=== PATIENT | female | born 1960 | race African-American/Black ===

== ENCOUNTER 2017-10-31 04:23 | Inpatient (IN) | payer BC ==
[2017-10-31] MEDS ORDERED: ONDANSETRON 4 MG INJ IV (05:30)
[2017-10-31] MEDS: morphine 2 MG INJ IV ×3 (05:49→14:06)
[2017-10-31] MEDS: DEXTROSE 5%-0.45% NACL 1,000 ML IV (05:50)
[2017-10-31] MEDS ORDERED: DEXTROSE 50% 50 ML SYRINGE IV ×2 (06:00)
[2017-10-31] MEDS ORDERED: GLUCOSE GEL 15 GRAM TUBE PO ×2 (06:00)
[2017-10-31] MEDS ORDERED: GLUCOSE GEL 15 GRAM TUBE BUCCAL (06:00)
[2017-10-31] MEDS ORDERED: GLUCAGON 1 MG INJ IM (06:00)
[2017-10-31 07:15] LABS: ADD MAN DIFF? NO
[2017-10-31 07:44] LABS: ALANINE AMINOTRANSFERASE 41 IU/L (13-69); ALBUMIN 3.5 g/dl (3.3-4.9); ALBUMIN/GLOBULIN RATIO 1.25; ALKALINE PHOSPHATASE 52 IU/L (42-121); ANION GAP 8 (8-16); ASPARTATE AMINO TRANSFERASE 43 IU/L (15-46); BILIRUBIN,INDIRECT 1.4 mg/dl (0-1.1); BILIRUBIN,TOTAL 1.4 mg/dl (0.2-1.3); BLOOD UREA NITROGEN 13 mg/dl (7-20); CARBON DIOXIDE 36 mmol/L (21-31); CHLORIDE 94 mmol/L (97-110); CREATININE 0.83 mg/dl (0.44-1.00); GLUCOSE 146 mg/dl (70-220); MAGNESIUM 2.1 mg/dl (1.7-2.5); PHOSPHORUS 2.5 mg/dl (2.5-4.9); POTASSIUM 3.1 mmol/L (3.5-5.1); SODIUM 135 mmol/L (135-144); TOTAL PROTEIN 6.3 g/dl (6.1-8.1)
[2017-10-31 07:48] LABS: BASOPHILS % 0.3 % (0.0-2.0); EOSINOPHILS # 0.1 10^3/ul (0.0-0.5); EOSINOPHILS % 0.8 % (0.0-7.0); HEMATOCRIT 35.6 % (37.0-47.0); HEMOGLOBIN 12.5 g/dl (12.0-16.0); LYMPHOCYTES # 2.7 10^3/ul (0.8-2.9); LYMPHOCYTES % 26.3 % (15.0-51.0); MEAN CORPUSCULAR HEMOGLOBIN 31.4 pg (29.0-33.0); MEAN CORPUSCULAR HGB CONC 35.1 g/dl (32.0-37.0); MEAN CORPUSCULAR VOLUME 89.4 fl (82.0-101.0); MEAN PLATELET VOLUME 10.3 fl (7.4-10.4); MONOCYTE # 0.4 10^3/ul (0.3-0.9); MONOCYTES % 3.9 % (0.0-11.0); NEUTROPHIL # 7.1 10^3/ul (1.6-7.5); NEUTROPHILS % 68.3 % (39.0-77.0); PLATELET COUNT 284 10^3/UL (140-415); RED BLOOD COUNT 3.98 10^6/ul (4.20-5.40); RED CELL DISTRIBUTION WIDTH 13.2 % (11.5-14.5)
[2017-10-31 07:48] LABS: WHITE BLOOD COUNT 10.4 10^3/ul (4.8-10.8)
[2017-10-31 07:49] LABS: HEMOGLOBIN A1C 7.3 % (0-5.9)
[2017-10-31] MEDS ORDERED: metFORMIN 500 MG TAB PO (08:00)
[2017-10-31] MEDS: INSULIN ASPART [NOVOLOG] 3 ML PEN SC ×3 (09:06→18:03)
[2017-10-31] MEDS: POTASSIUM CHLORIDE (SR) 20 MEQ TAB PO ×2 (10:09→11:32)
[2017-10-31 10:55] LABS: SODIUM,URINE RANDOM 22 mmol/L (30-90)
[2017-10-31] MEDS: POTASSIUM CHLORIDE 40 MEQ in SOD CHLORIDE 0.9% 1,000 ML IV (12:03)
[2017-10-31 16:28] LABS: ANION GAP 9 (8-16); BLOOD UREA NITROGEN 10 mg/dl (7-20); CALCIUM 8.1 mg/dl (8.4-10.2); CARBON DIOXIDE 34 mmol/L (21-31); CHLORIDE 97 mmol/L (97-110); GLUCOSE 126 mg/dl (70-220); POTASSIUM 3.8 mmol/L (3.5-5.1); SODIUM 136 mmol/L (135-144)
[2017-11-01] MEDS ORDERED: ACCU-CHEK XX (02:00)
[2017-11-01] MEDS ORDERED: LEVOTHYROXINE 25 MCG TAB PO (07:00)
[2017-11-10 14:06] LABS: PTH CALCIUM 8.2 mg/dL (8.6-10.4); PTH INTACT 147 pg/mL (14-64)
== END 2017-10-31 20:35 | disposition home or self-care (01) | DRG 392 ==
LOC: PP2 04:23
DX: R19.7 Diarrhea, unspecified (principal); E87.6 Hypokalemia; I10 Essential (primary) hypertension; E03.9 Hypothyroidism, unspecified; E11.9 Type 2 diabetes mellitus without complications; Z87.891 Personal history of nicotine dependence; T38.3X5A Adverse effect of insulin and oral hypoglycemic [antidiabetic] drugs, initial encounter
CPT/HCPCS: 74018; 80048; 80053; 82436; 82962; 83036; 83735; 83970; 84100; 84133; 84300; 84443; 85025